=== PATIENT | male | born 1960 ===

== ENCOUNTER 2017-02-01 11:52 | Inpatient (IN) | payer MEDICAID ==
[2017-02-01 11:52] VITALS: BMI 27.0
[2017-02-01] MEDS ORDERED: Sodium Chloride 0.9% 500 ML IV ONE ×2 (12:22→12:29)
--- NOTE | 2017-02-01 12:25 | C.PDOC ---
History Of Present Illness 56 y/o male with PMHx of bipolar disorder presents to the ED for psychiatric evaluation. He reports feeling increasingly depressed over the past week, and states he recently experienced the loss of his parents and his . Patient is having suicidal thoughts, and plans to walk into traffic. Denies homicidal ideations. Patient is a daily drinker of alcohol, last drink was prior to arrival. Denies drug use. PMD: Debbie Tristan Rust Time Seen by Provider: 02/01/17 11:58 Chief Complaint (Nursing): Psychiatric Evaluation History Per: Patient History/Exam Limitations: no limitations Onset/Duration Of Symptoms: Days (x 1 week) Current Symptoms Are (Timing): Still Present Modifying Factor(s): Alcohol Severity: Moderate Associated Symptoms: Depression, Suicidal Thoughts, Suicidal Plan Involuntary Hold By: Emergency Physician Past Medical History Reviewed: Historical Data, Nursing Documentation, Vital Signs Vital Signs: Last Vital Signs Temp 97.9 F 02/04/17 09:22 Pulse 85 02/04/17 09:22 Resp 20 02/04/17 09:22 BP 136/85 02/04/17 09:22 Pulse Ox 98 02/04/17 09:22 - Medical History PMH: Anxiety, Bipolar Disorder, Depression, Pulmonary Embolism, Seizures (ETOH related) - [facility] Procedures DETOXIFICATION SERVICES FOR SUBSTANCE ABUSE TREATMENT (10/28/15) GROUP PSYCHOTHERAPY (12/31/15) INDIVIDUAL PSYCHOTHERAPY, SUPPORTIVE (12/31/15) MEDICATION MANAGEMENT (12/31/15) Family History: States: No Known Family Hx - Social History Hx Alcohol Use: Yes Hx Substance Use: No - Immunization History Hx Tetanus Toxoid Vaccination: No Hx Influenza Vaccination: Yes Hx Pneumococcal Vaccination: No Review Of Systems Except As Marked, All Systems Reviewed And Found Negative. Constitutional: Negative for: Fever Cardiovascular: Negative for: Chest Pain Respiratory: Negative for: Shortness of Breath Gastrointestinal: Negative for: Vomiting, Abdominal Pain, Diarrhea Psych: Positive for: Depression, Suicidal ideation (with plan). Negative for: Other Physical Exam - Physical Exam Appears: Well, Non-toxic, No Acute Distress Skin: Normal Color, Warm, Dry Eye(s): bilateral: Normal Inspection Oral Mucosa: Moist Neck: Supple Cardiovascular: Rhythm Regular Respiratory: Normal Breath Sounds, Accessory Muscle Use, No Rales, No Rhonchi, No Wheezing Gastrointestinal/Abdominal: Normal Exam, Bowel Sounds, Soft, No Tenderness Back: Normal Inspection Extremity: Bilateral: Atraumatic, Normal Color And Temperature, Normal ROM Neurological/Psych: Oriented x3 Gait: Steady ED Course And Treatment - Laboratory Results Result Diagrams: 02/01/17 12:18 02/01/17 12:18 Interpretation Of Abnormal: Alcohol - 347 O2 Sat by Pulse Oximetry: 96 (RA) Pulse Ox Interpretation: Normal Progress Note: 12:12. Initial Plan: Blood work, UA, UDS, and crisis evaluation. Patient given IV NS bolus. Placed on 1:1 observation. 3:50pm- Patient medically cleared. Pending sobriety & crisis. 6:55pm- Patient accepted by Dr. Blanco for psychiatric admission - bipolar disorder and alcohol dependence. Disposition - Disposition Disposition: HOSPITALIZED Disposition Time: 18:59 Condition: STABLE - Clinical Impression Clinical Impression: Bipolar disorder, Alcohol intoxication - Scribe Statement The provider has reviewed the documentation as recorded by the Scribchuck Griffin All medical record entries made by the Scribe were at my direction and personally dictated by me. I have reviewed the chart and agree that the record accurately reflects my personal performance of the history, physical exam, medical decision making, and the department course for this patient. I have also personally directed, reviewed, and agree with the discharge instructions and disposition. Decision To Admit - Pt Status Changed To: Hospital Disposition Of: Inpatient - Admit Certification Admit to Inpatient:: After my assessment, the patient will require hospitalization for at least two midnights. This is because of the severity of symptoms shown, intensity of services needed, and/or the medical risk in this patient being treated as an outpatient. - InPatient: Physician Admission Certification: I certify that this patient requires 2 or more midnights of care for the following reason:: see notes - . Bed Request Type: Psychiatry Admitting Physician: Zoe Blanco Patient Diagnosis: Bipolar disorder, Alcohol dependence
[2017-02-01 12:27] LABS: BASO % 0.5 % (0.0-2.0); EOS % 0.3 % (0.0-4.0); HEMATOCRIT 38.8 % (35.0-51.0); LYMPH # 2.8 K/uL (1.0-4.3); LYMPH % 34.2 % (20.0-40.0); MEAN CELL VOLUME 87.3 fL (80.0-94.0); MEAN CORPUSCULAR HEMOGLOBIN 29.7 pg (27.0-31.0); MEAN PLATELET VOLUME 6.9 fL (7.2-11.7); MONO # 0.7 K/uL (0.0-0.8); MONO % 8.1 % (0.0-10.0); RED CELL DISTRIBUTION WIDTH 13.7 % (11.5-14.5); WHITE BLOOD COUNT 8.1 K/uL (4.8-10.8)
[2017-02-01 12:34] LABS: ALB/GLOB RATIO 1.4 (1.0-2.1); ALKALINE PHOSPHATASE 63 U/L (38-126); ALT/SGPT 43 U/L (21-72); AST/SGOT 45 U/L (17-59); BILIRUBIN,TOTAL 0.3 mg/dL (0.2-1.3); BLOOD UREA NITROGEN 9 mg/dL (9-20); CALCIUM 8.6 mg/dl (8.6-10.4); CARBON DIOXIDE 23 mmol/L (22-30); CHLORIDE 106 mmol/L (98-107); GFR AFRICAN-AMERICAN > 60; GLUCOSE,RANDOM 119 mg/dL (75-110); POTASSIUM 3.8 mmol/L (3.6-5.2); SODIUM 146 mmol/L (132-148); TOTAL PROTEIN 7.1 g/dL (6.3-8.3)
[2017-02-01 12:57] LABS: ALCOHOL SERUM 347 mg/dl (0-10)
[2017-02-01 18:22] LABS: URINE BILIRUBIN NEGATIVE (NEGATIVE); URINE BLOOD NEGATIVE (NEGATIVE); URINE COLOR Colorless (YELLOW); URINE GLUCOSE (UA) NORMAL (Normal); URINE KETONE NEGATIVE (NEGATIVE); URINE LEUKOCYTE ESTERASE NEG Leu/uL (Negative); URINE PROTEIN NEGATIVE (NEGATIVE); URINE UROBILINOGEN NORMAL mg/dL (0.2-1.0)
[2017-02-01] MEDS ORDERED: Aluminum Hydroxide/Magnesium Hydroxide Susp (30 mL) PO PRN (20:08)
--- NOTE | 2017-02-01 20:29 | PCM.BM ---
<Tena Swan - Last Filed: 02/01/17 20:28> Treatment Plan Problems - Problems identified on initial assessmt Depression Date Initiated: 02/01/17 Time Initiated: 20:28 Assessment reference: NA Status: Active Comment: ETOH LEVEL 347 Treatment assets and liabiliti Patient Assests: cooperative, negotiates basic needs Patient Liabilities: poor support system, substance abuse - Milieu Protocol Maintain good personal hygiene: daily Encourage regular showers, daily Remind patient to perform daily oral care Conduct patient checks and document Observation sheet: Q15 minutes Maintain personal safety: every shift Educate patient to report safety concerns to staff, every shift Monitor environment for contraband/sharps Medication safety: Monitor for expected outcome, potential side effects: every shift, Assess barriers to learning: every shift, Assess readiness for medication education: every shift <Ellen Lopez - Last Filed: 02/03/17 11:22> - Diagnosis (1) Major depressive disorder, recurrent, moderate Status: Acute Interventions: 02/03/17 11:23 * Assess/adjust medications daily and /or as needed * See patient on an individual basis 7x/week to assess level of depressive behaviors and stability * Discuss risks, benefits, side effects and alternatives of medications * (2) Alcohol dependence Status: Acute Interventions: 02/03/17 11:23 * Assess 7x/week regarding severity of withdrawal * Educate regarding risks, benefits, side effects and alternatives of medications * Use Motivational Interviewing for abstinence * Use CBT for relapse prevention * Medication management for withdrawal symptoms * Encourage medication assisted treatment * <Debbie Tomlinson - Last Filed: 02/03/17 11:32> Family Contact Family involvement: Famliy/SO not involved - Goals for Treatment Patient goals for treatment: "I want to leave." Discharge/Continuing Care - Education Needs Education Needs: Patient Medication, Patient Coping Skills, Patient Placement options, Patient Community resources - Discharge Discharge Criteria: Tolerates medication w/o severe side effects, Free of Suicidal thoughts, No longer exhibiting s/s of withdrawal Discharge to:: Custodial - Treatment Team Participation Discussed with Family/SO: No Was Patient/Family/SO present at Treatment Team Meeting: Yes
--- NOTE | 2017-02-02 10:13 | PCM.PSYCH ---
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 He was previously living with his sister and her , but got into a verbal altercation with them after drinking and was kicked out of the house. Patient is a poor historian. He allows himself to be interviewed, but appears guarded, unwilling to answer some questions, and is evasive about the timeline of events. Patient has a longstanding history of anxiety, depression, bipolar and alcohol use disorder. He came to the ED yesterday for suicidal thoughts following a "drinking binge" and was admitted. Patient states that he used to see a psychiatrist (doesn't know when) but stopped because he felt "uncomfortable." His PMD has been prescribing his medications and he has been compliant. States that he was admitted for ETOH detox 1 year ago, and has been following up with AA since that time. He states that he stopped drinking alcohol until he went on a 4 day alcohol binge prior to his admission here because things in his life "aren't working out." He states that he developed suicidal thoughts after drinking, and thus came to the hospital. Regarding ETOH use, patient reports that he's been drinking 1 pint of liquor daily since the start of his binge. He denies drinking beer. Patient has a history of ETOH related seizures, but cannot recall when his last seizure was. He denies use of heroin, cocaine, marijuana, painkillers or any other substances. Regarding withdrawal symptoms, patient reports shaking, nausea, and sweating. He denies vomiting, diarrhea, itching skin, headache, or heart racing. He states he has muscle pain because he's "not used to the bed." Patient is evasive when questioned about his depressive symptoms. He states that his depression has "intensified" but cannot provide a timeline. Reports sleeping "on and off" for about 5 hours per night, and a decreased interest in things he is normally interested in. He denies feelings of guilt, worthlessness , change in energy, change in concentration, change in appetite or weight. Patient has thoughts about killing himself. Patient states that he has tried to kill himself in the past but will not provide further details. Patient denies racing thoughts or periods of greatly elevated mood. He denies auditory/visual hallucinations, or the feeling like he is being watched or followed. 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 Current Medications: Active Medications Generic Name Dose Route Start Last Admin Trade Name Freq PRN Reason Stop Dose Admin Al Hydrox/Mg Hydrox/Simethicone 30 ml 02/01/17 20:08 02/01/17 21:31 Maalox 30 Ml PO 30 ml Q6 PRN Administration Indigestion / Heartburn Chlordiazepoxide 0 mg 02/02/17 12:00 Librium PO 02/07/17 11:59 Q6 ANITRA Taper Chlordiazepoxide 25 mg 02/02/17 10:08 Librium PO Q4H PRN Alcohol Withdrawal Clonidine HCl 0.1 mg 02/02/17 10:08 Catapres PO Q4H PRN Symptoms of alcohol withdrawl Duloxetine HCl 60 mg 02/02/17 10:00 02/02/17 10:02 Cymbalta PO 60 mg DAILY ANITRA Administration Folic Acid 1 mg 02/02/17 10:15 Folic Acid PO DAILY ANITRA Gabapentin 300 mg 02/01/17 18:00 02/02/17 10:02 Neurontin PO 300 mg TID ANITRA Administration Ibuprofen 600 mg 02/01/17 18:46 Motrin Tab PO Q6 PRN Pain, moderate (4-7) Multivitamins 1 tab 02/02/17 10:15 Hexavitamin PO DAILY ANITRA Quetiapine Fumarate 50 mg 02/01/17 22:00 02/01/17 21:31 Seroquel PO 50 mg HS ANITRA Administration Quetiapine Fumarate 50 mg 02/02/17 10:00 02/02/17 10:04 Seroquel PO 50 mg DAILY ANITRA Administration Thiamine HCl 100 mg 02/02/17 10:15 Vitamin B1 Tab PO DAILY ANITRA Trazodone HCl 50 mg 02/01/17 22:00 Desyrel PO HS PRN Insomnia Past Psychiatric History - Past Psychiatric History Previous Treatment History: Inpatient Pertinent Medical Hx (Current Medical&Sleep Prob, Allergies): Allergies Allergy/AdvReac Type Severity Reaction Status Date / Time No Known Allergies Allergy Verified 02/01/17 11:56 QUEtiapine [SEROquel] 50 mg PO BID 12/30/15 Warfarin [Coumadin] 5 mg PO DAILY 12/30/15 DULoxetine [Cymbalta] 30 mg PO DAILY #30 ecc 01/05/16 QUEtiapine [Seroquel] 100 mg PO HS #30 tab 01/05/16 traZODone [Desyrel] 50 mg PO HS PRN #30 tab 01/05/16 Review of Systems - Review of Systems All systems: reviewed and no additional remarkable complaints except - Neurological Neurological: UNREMARKABLE - Psychiatric Psychiatric: Abnormal Sleep Pattern, Anhedonia, Anxiety, Depression, Suicidal Ideation Mental Status Examination - Personal Presentation Personal Presentation: Looks stated age - Affect Affect: Constricted, Depressed - Motor Activity Motor Activity: Calm - Reliability in Providing Information Reliability in Providing Information: Poor, due to altered mood - Speech Speech: Organized - Mood Mood: Depressed - Formal Thought Process Formal Thought Process: No Impairment - Obsessions/Compulsions Obsessions: No Compulsions: No - Cognitive Functions Orientation: Person, Place, Situation, Time Sensorium: Alert Attention/Concentration: Attentive Abstract Thinking: Mercer Estimate of Intelligence: Below average Judgement: Imparied, as evidence by: Poor judgement, Imparied, as evidence by: Lack of insight into illness - Risk Risk: Suicidal, Withdrawal, Diminished functioning - Limitations Limitations: Living alone DSM 5 DX - DSM 5 DSM 5 Diagnosis: Bipolar disorder depressed moderate Alcohol use disorder severe Alcohol withdrawal - Recommended/Plan of Treatment Treatment Recommendations and Plan of Treatment: Bipolar disorder depressed moderate CBT [facility] Psychoeducation Supportive therapy, group therapy Cymbalta 60mg PO daily Neurontin 300mg PO TID Seroquel 50mg PO BID Trazodone 50 mg pO QHS Alcohol Use Disorder severe CBT [facility] Supportive psychotherapy Alcohol Withdrawal Librium 25mg PO Q4H PRN Clonidine 0.1mg PO Q4H PRN - Smoking Cessation Smoking Cessation Initiated: No
[2017-02-02] MEDS: Multiple Vitamins Tab PO SCH (13:20)
[2017-02-03] MEDS: Multiple Vitamins Tab PO SCH (10:18)
--- NOTE | 2017-02-03 11:24 | PCM.PYCHPN ---
Psychiatric Progress Note - Psychiatric Progress Note Patient seen today, length of contact: 15 minutes Patient Chief Complaint: "I want to go" Problems Identified/Issues Discussed: The patient was seen, chart reviewed and case was discussed with staff. The patient is compliant with medications and reports no side effects. Patient states improvement in his mood and improvement in the withdrawal s/s. 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 He denies suicidal ideation. He set up an appointment to see a psychiatrist on February 24. Plan for discharge tomorrow discussed with patient. After care discussed, support and psychoeducation given. Medication Change: Yes (d/c neurontin) Medical Record Reviewed: Yes Mental Status Examination - Cognitive Function Orientation: Person, Place, Situation, Time Memory: Intact Attention: WNL Concentration: Poor Association: WNL Fund of Knowledge: Poor - Mood Mood: Depressed - Affect Affect: Constricted, Depressed - Speech Speech: Soft - Formal Thought Process Formal Thought Process: No Impairment - Suicidal Ideation Suicidal Ideation: No - Homicidal Ideation Homicidal Ideation: No Goal/Treatment Plan - Goal/Treatment Plan Need for Continued Stay: Discharge may exacerbated symptoms Progress Toward Problem(s) and Goals/Treatment Plan: Bipolar disorder depressed moderate CBT [facility] Psycho[facility] Supportive therapy, group therapy Cymbalta 60mg PO daily d/c Neurontin 300mg PO TID Seroquel 50mg PO BID Trazodone 50 mg pO QHS Alcohol Use Disorder severe CBT [facility] Supportive psychotherapy Alcohol Withdrawal Librium taper (started yesterday) Librium 25mg PO Q4H PRN Clonidine 0.1mg PO Q4H PRN
[2017-02-04 09:03] VITALS: BP 136/85; RESP 20
[2017-02-04] MEDS: Multiple Vitamins Tab PO SCH (09:18)
[2017-02-04 09:51] VITALS: PULSE 85; TEMP 97.9
--- NOTE | 2017-02-04 10:34 | PCM.PYCHDC ---
Mental Status Examination - Mental Status Examination Orientation: Person, Place, Situation, Time Memory: Intact Mood: Anxious Affect: Constricted Speech: Appropriate Attention: WNL Concentration: Poor Association: WNL Fund of Knowledge: WNL Formal Thought Process: No Impairment Suicidal Ideation: No Current Homicidal Ideation?: No Discharge Summary - Discharge Note Reason for Hospitalization: Alcohol detox, depressive sxs and jose m ideation. Consultations:: List each consultation separately and include: 1. Reason for request. 2. Findings. 3. Follow-up Summary of Hospital Course include:: 1. Description of specific treatment plan utilized for patients during their course of treatmen. 2. Summarize the time- course for resolution of acute symptoms and/or regressed behaviors. 3. Describe issues identified and worked on during hospitalization. 4. Describe medication utilized. 5. Describe medical problems identified and treated. 6. Reassessment of suicide risk Summary of Hospital Course: The pt was admitted and started on treatment with psychotherapy, support, psychoeducation and medications. [place] and CBT used. The pt attended only a few groups and activities, as well as milieu therapy. All the risks and benefits of medications are discussed and the patient understood and agreed. The pt improved somewhat with the treatments provided. After care discussed with the patient. However, he decided to leave afetr 1-2 days for some made-up reasons. Risks of leaving early discussed, incl. relapse, withdrawal-seizures, OD . He still left. - Final Diagnosis (DSM 5) Condition upon Discharge: STABLE DSM 5: Bipolar disorder depressed moderate Alcohol use disorder severe Alcohol withdrawal Disposition: HOME/ ROUTINE Follow-up Treatment Plan: Cymbalta was NOT prescribed. Lexapro is given instead. Go to AA (his plan) Attend IOP (names discussed Stay away from alcohol, drugs Come to ER if needed See a PCP this month Prescriptions/Medication Reconciliation: DULoxetine [Cymbalta] 60 mg PO DAILY 14 Days QUEtiapine [SEROquel] 50 mg PO BID 28 Days - Smoking Cessation Smoking Cessation Medication prescribed: No - Antipsychotic Medications Pt discharged on 2 or more routine antipsychotic medications: No
[2017-02-06 09:14] VITALS: O2SAT 96
== END 2017-02-04 11:00 | disposition home or self-care (01) | DRG 430 ==
LOC: C.ER 11:52 → C.9OBSV 13:00 → OBSVTOIN 18:59 → C.5E 18:59
PROVIDERS: ADMIT Emergency Medicine; ATTEND Psychiatry & Neurology Psychiatry
PROC: HZ2ZZZZ Detoxification Services for Substance Abuse Treatment (ICD-10-PCS; principal; 2017-02-02)
PROC: HZ42ZZZ Group Counseling for Substance Abuse Treatment, Cognitive-Behavioral (ICD-10-PCS; 2017-02-02)
PROC: HZ52ZZZ Individual Psychotherapy for Substance Abuse Treatment, Cognitive-Behavioral (ICD-10-PCS; 2017-02-02)
PROC: HZ59ZZZ Individual Psychotherapy for Substance Abuse Treatment, Supportive (ICD-10-PCS; 2017-02-02)
PROC: HZ56ZZZ Individual Psychotherapy for Substance Abuse Treatment, Psychoeducation (ICD-10-PCS; 2017-02-02)
PROC: HZ46ZZZ Group Counseling for Substance Abuse Treatment, Psychoeducation (ICD-10-PCS; 2017-02-02)
DX: F31.32 Bipolar disorder, current episode depressed, moderate (principal); R56.9 Unspecified convulsions; R45.851 Suicidal ideations; F10.239 Alcohol dependence with withdrawal, unspecified; F10.288 Alcohol dependence with other alcohol-induced disorder; Z86.711 Personal history of pulmonary embolism; F41.9 Anxiety disorder, unspecified; Y90.8 Blood alcohol level of 240 mg/100 ml or more; Z59.0 Homelessness

== ENCOUNTER 2017-02-04 19:22 | Emergency (ER) | payer MEDICAID ==
[2017-02-04 19:23] VITALS: BMI 27.0
[2017-02-04 19:51] VITALS: BP 105/68; PULSE 93; RESP 16; TEMP 98.3; O2SAT 96
--- NOTE | 2017-02-04 20:39 | C.PDOC ---
History Of Present Illness pt states he wants detox. when the pt was told that that there are no beds available, the patient became threatening ,. belligerent, threatening to me. The event was witnessed by nurse Eduardo. Patient then left Time Seen by Provider: 02/04/17 20:39 Chief Complaint (Nursing): Substance Abuse Past Medical History Vital Signs: Last Vital Signs Temp 98.3 F 02/04/17 19:44 Pulse 93 H 02/04/17 19:44 Resp 16 02/04/17 19:44 BP 105/68 02/04/17 19:44 Pulse Ox 96 02/04/17 20:39 - Medical History PMH: Anxiety, Bipolar Disorder, Depression, Pulmonary Embolism, Seizures (ETOH related) Denies: Diabetes, Hepatitis, HIV, HTN, Sexually Transmitted Disease - [facility] Procedures DETOXIFICATION SERVICES FOR SUBSTANCE ABUSE TREATMENT (10/28/15) GROUP PSYCHOTHERAPY (12/31/15) INDIVIDUAL PSYCHOTHERAPY, SUPPORTIVE (12/31/15) MEDICATION MANAGEMENT (12/31/15) Family History: States: Unknown Family Hx - Social History Hx Alcohol Use: Yes Hx Substance Use: No - Immunization History Hx Tetanus Toxoid Vaccination: No Hx Influenza Vaccination: Yes Hx Pneumococcal Vaccination: No ED Course And Treatment O2 Sat by Pulse Oximetry: 96 Disposition Counseled Patient/Family Regarding: Studies Performed, Diagnosis - Disposition Disposition: ELOPEMENT - ER ONLY Disposition Time: 20:39 Condition: FAIR Forms: [facility] (Jamaican) - Clinical Impression Clinical Impression: Alcohol dependence
== END 2017-02-04 20:39 | disposition left against medical advice (07) ==
LOC: C.ER 19:22
DX: F10.20 Alcohol dependence, uncomplicated (principal); Y90.9 Presence of alcohol in blood, level not specified

== ENCOUNTER 2017-02-07 14:23 | Observation (INO) | payer MEDICAID ==
[2017-02-07 14:23] VITALS: BMI 27.0
[2017-02-07 14:38] VITALS: BP 114/73; PULSE 99; RESP 16; TEMP 98.2; O2SAT 97
[2017-02-07] MEDS ORDERED: Sodium Chloride 0.9% 1,000 ML IV ONE (15:23)
[2017-02-07 15:36] LABS: BASO % 0.6 % (0.0-2.0); EOS # 0.1 K/uL (0.0-0.7); EOS % 0.9 % (0.0-4.0); HEMATOCRIT 38.2 % (35.0-51.0); LYMPH # 2.2 K/uL (1.0-4.3); MEAN CELL VOLUME 87.2 fL (80.0-94.0); MEAN CORPUSCULAR HEMOGLOBIN 30.1 pg (27.0-31.0); MEAN CORPUSCULAR HGB CONC 34.5 g/dL (33.0-37.0); MEAN PLATELET VOLUME 6.5 fL (7.2-11.7); MONO # 0.4 K/uL (0.0-0.8); MONO % 7.6 % (0.0-10.0); RED CELL DISTRIBUTION WIDTH 13.3 % (11.5-14.5); WHITE BLOOD COUNT 5.7 K/uL (4.8-10.8)
[2017-02-07] MEDS ORDERED: Sodium Chloride 0.9% 1,000 ML ONE (15:42)
--- NOTE | 2017-02-07 15:46 | C.PDOC ---
History Of Present Illness <Morena Martin - Last Filed: 02/07/17 18:51> <Wojciech Rosario - Last Filed: 02/07/17 19:27> 56 year old male, whose past medical history includes alcohol abuse, depression , bipolar disorder, and anxiety, who presents to the Emergency department complaining of epigastric abdominal pain, nausea. At present time, Patient appears in acute alcohol intoxication, admits to drinking alcohol " today all day". Pt is very poor historian, although denies suicidal or homicidal ideation , vomiting, diarrhea, urinary symptoms. Ambulatory in ED. (Morena Martin) 726pm pt clinically sober, [id number], amb w steady gait (Wojciech Rosario) <Morena Martin - Last Filed: 02/07/17 18:51> <Wojciech Rosario - Last Filed: 02/07/17 19:27> Time Seen by Provider: 02/07/17 14:50 Chief Complaint (Nursing): Substance Abuse Past Medical History - Medical History PMH: Anxiety, Bipolar Disorder, Depression, Pulmonary Embolism, Seizures (ETOH related) Denies: Diabetes, Hepatitis, HIV, HTN, Chronic Kidney Disease, Sexually Transmitted Disease Family History: States: Unknown Family Hx - Social History Hx Alcohol Use: Yes Hx Substance Use: No (denies) - Immunization History Hx Tetanus Toxoid Vaccination: No Hx Influenza Vaccination: Yes Hx Pneumococcal Vaccination: No <Morena Martin - Last Filed: 02/07/17 18:51> Review Of Systems Review Of Systems: ROS cannot be obtained secondary to pt's inabilty to answer questions. (intoxicated) Gastrointestinal: Positive for: Nausea, Abdominal Pain <Morena Martin - Last Filed: 02/07/17 18:51> Physical Exam - Physical Exam Appears: No Acute Distress, Other (intoxicated) Skin: Normal Color, Warm, Dry Head: Atraumatic, Normacephalic Eye(s): bilateral: PERRL ((+)slugish reactive B/L) Ear(s): Bilateral: Normal Nose: No Flaring Oral Mucosa: Moist Neck: No Midline Cervical Tenderness, No Paracervical Tenderness, No Step Off Deformity, Supple Cardiovascular: Rhythm Regular, No JVD Respiratory: No Decreased Breath Sounds, No Accessory Muscle Use, No Stridor, No Wheezing Gastrointestinal/Abdominal: Soft, Tenderness (mild epigastric), No Distention, No Guarding, No Rebound Extremity: Normal ROM, No Pedal Edema, No Deformity, No Swelling Neurological/Psych: Normal Motor, Normal Sensation, Normal Reflexes <Morena Martin - Last Filed: 02/07/17 18:51> ED Course And Treatment - Laboratory Results Result Diagrams: 02/07/17 15:31 02/07/17 15:31 O2 Sat by Pulse Oximetry: 97 Pulse Ox Interpretation: Normal <Morena Martin - Last Filed: 02/07/17 18:51> - Laboratory Results Result Diagrams: 02/07/17 15:31 02/07/17 15:31 <Wojciech Rosario - Last Filed: 02/07/17 19:27> ED OBSERVATION Date of observation admission: 02/07/17 Time of observation admission: 15:30 <Morena Martin - Last Filed: 02/07/17 18:51> Discharge: Yes <Wojciech Rosario - Last Filed: 02/07/17 19:27> - Observation admission statement Patient is being placed in observation because:: Alcohol intoxication, epigastric pain (Morena Martin) - Goals of Observation Goals of observation are:: Diagnostics, sx tx, sobriety, re-eval (Morena Martin) - Progress Note Progress Note: 02/07/17 At 16:27, pt sleeping comfortably, not in any apparent distress. Pt is easily arousable to verbal stimuli. Neuorlogicaly intact. Blood work review and appears without acute abnormalities. At 17:59, sleeping, not in any apparent distress. Neurologicaly intact. At 19:00, pt sleeping, not in any apparent distress. neuorlogicaly intact. (Morena Martin) Disposition <Morena Martin - Last Filed: 02/07/17 18:51> - Disposition Disposition Time: 19:26 <Wojciech Rosario - Last Filed: 02/07/17 19:27> - Disposition Disposition: HOME/ ROUTINE Condition: STABLE - Clinical Impression Clinical Impression: Alcohol intoxication Physician Patient Turnover Patient Signed Over To: Wojciech Rosario Handoff Comments: Sobriety, re-eval, dispo <Morena Martin - Last Filed: 02/07/17 18:51>
[2017-02-07 15:53] LABS: CHLORIDE 105 mmol/L (98-107)
[2017-02-07 15:54] LABS: SODIUM 141 mmol/L (132-148)
[2017-02-07 15:56] LABS: GFR AFRICAN-AMERICAN > 60
[2017-02-07 15:57] LABS: ALB/GLOB RATIO 1.6 (1.0-2.1); ALKALINE PHOSPHATASE 47 U/L (38-126); ALT/SGPT 36 U/L (21-72); AST/SGOT 29 U/L (17-59); BILIRUBIN,TOTAL 0.6 mg/dL (0.2-1.3); BLOOD UREA NITROGEN 9 mg/dL (9-20); CALCIUM 8.8 mg/dl (8.6-10.4); CARBON DIOXIDE 23 mmol/L (22-30); GLUCOSE,RANDOM 101 mg/dL (75-110); TOTAL PROTEIN 7.1 g/dL (6.3-8.3)
[2017-02-07 15:58] LABS: ALCOHOL SERUM 164 mg/dl (0-10)
[2017-02-07 17:30] LABS: RBC URINE < 1 /hpf (0-3); URINE BILIRUBIN NEGATIVE (NEGATIVE); URINE BLOOD NEGATIVE (NEGATIVE); URINE COLOR Straw (YELLOW); URINE GLUCOSE (UA) NORMAL (Normal); URINE KETONE NEGATIVE (NEGATIVE); URINE LEUKOCYTE ESTERASE NEG Leu/uL (Negative); URINE PROTEIN NEGATIVE (NEGATIVE); URINE UROBILINOGEN NORMAL mg/dL (0.2-1.0)
== END 2017-02-07 19:27 | disposition home or self-care (01) ==
LOC: C.ER 14:23 → C.9OBSV 15:26
PROVIDERS: ADMIT Emergency Medicine; ATTEND Emergency Medicine
DX: F10.229 Alcohol dependence with intoxication, unspecified (principal); F32.9 Major depressive disorder, single episode, unspecified; E11.22 Type 2 diabetes mellitus with diabetic chronic kidney disease; I12.9 Hypertensive chronic kidney disease with stage 1 through stage 4 chronic kidney disease, or unspecified chronic kidney disease; N18.9 Chronic kidney disease, unspecified
CPT/HCPCS: 80053; 80320; 80324; 80345; 80346; 80349; 80353; 80358; 80361; 81001; 82948; 83690; 83992; 85025; 96360; 96374; C9113; G0378; J2405; J7040

== ENCOUNTER 2017-04-10 23:08 | Inpatient (IN) | payer MEDICAID, OTHER ==
[2017-04-10 23:08] VITALS: BMI 27.0
--- NOTE | 2017-04-11 00:04 | C.PDOC ---
History Of Present Illness Patient presents to ED requesting ETOH detox and reports left chest wall discomfort when coughing. Patient states last drank ETOH was 1 hour prior to arrival and denies fever, chills, nausea, vomiting or any other complaints at this time. Time Seen by Provider: 04/11/17 00:03 Chief Complaint (Nursing): Chest Pain History Per: Patient History/Exam Limitations: no limitations Onset/Duration Of Symptoms: Hrs Current Symptoms Are (Timing): Still Present Suicide/Self Injury Attempted (Context): None Modifying Factor(s): Alcohol Severity: Mild Pain Scale Rating Of: 2 Associated Symptoms: denies: Anger, Suicidal Thoughts Past Medical History Reviewed: Historical Data, Nursing Documentation, Vital Signs Vital Signs: Last Vital Signs Temp 97.3 F L 04/11/17 01:14 Pulse 95 H 04/11/17 01:14 Resp 20 04/11/17 01:14 BP 113/55 L 04/11/17 01:14 Pulse Ox 98 04/11/17 02:09 - Medical History PMH: Anxiety, Bipolar Disorder, Depression, Pancreatitis, Pulmonary Embolism, Seizures (ETOH related) Surgical History: No Surg Hx - [facility] DETOXIFICATION SERVICES FOR SUBSTANCE ABUSE TREATMENT (02/01/17) GROUP GETTERER FOR SUBSTANCE ABUSE TREATMENT, PSYCHOEDUCATION (02/01/17) GROUP GETTERER FOR SUBSTANCE ABUSE, COGNITIVE BEHAVIORAL (02/01/17) GROUP PSYCHOTHERAPY (12/31/15) INDIV PSYCHOTHERAPY FOR SUBSTANCE ABUSE TREATMENT, SUPPORT (02/01/17) INDIV PSYCHOTHERAPY FOR SUBSTANCE ABUSE, COGNITIV BEHAVIORAL (02/01/17) INDIV PSYCHOTHERAPY FOR SUBSTANCE ABUSE, PSYCHOEDUCATION (02/01/17) INDIVIDUAL PSYCHOTHERAPY, SUPPORTIVE (12/31/15) MEDICATION MANAGEMENT (12/31/15) Family History: States: No Known Family Hx - Social History Hx Alcohol Use: Yes Hx Substance Use: No (denies) - Immunization History Hx Tetanus Toxoid Vaccination: No Hx Influenza Vaccination: Yes Hx Pneumococcal Vaccination: No Review Of Systems Constitutional: Negative for: Fever, Chills Cardiovascular: Positive for: Chest Pain Respiratory: Negative for: Cough, Shortness of Breath Gastrointestinal: Negative for: Nausea, Vomiting Skin: Negative for: Rash Physical Exam - Physical Exam Appears: Non-toxic, No Acute Distress Skin: Warm, Dry, No Rash Head: Normacephalic Oral Mucosa: Moist Neck: Supple Cardiovascular: Rhythm Regular Respiratory: Normal Breath Sounds, No Rales, No Rhonchi, No Wheezing Gastrointestinal/Abdominal: Soft, No Tenderness, No Guarding, No Rebound Extremity: Capillary Refill (<2 seconds) Neurological/Psych: Oriented x3, Normal Speech (speaking in full sentences) ED Course And Treatment - Laboratory Results Result Diagrams: 04/11/17 00:45 04/11/17 00:45 ECG: Interpreted By Me, Viewed By Me ECG Rhythm: Sinus Rhythm (78), Nonspecific Changes O2 Sat by Pulse Oximetry: 98 (RA) Pulse Ox Interpretation: Normal - Radiology CXR: Interpreted by Me, Viewed By Me CXR Interpretation: No: Infiltrates, Fracture, Pnemothorax Disposition Discussed With Dr.: Kylee Mittal Comment: accepted the pt on her service and took over the care at 3:44 AM Doctor Will See Patient In The: Hospital Counseled Patient/Family Regarding: Studies Performed, Diagnosis - Disposition Disposition: HOSPITALIZED Disposition Time: 00:04 Condition: FAIR Forms: [facility] (Ivorian) - POA Present On Arrival: None - Clinical Impression Clinical Impression: Alcohol dependence, Major depressive disorder, recurrent - Scribe Statement The provider has reviewed the documentation as recorded by the Scribe Mickey Slater All medical record entries made by the Scribe were at my direction and personally dictated by me. I have reviewed the chart and agree that the record accurately reflects my personal performance of the history, physical exam, medical decision making, and the department course for this patient. I have also personally directed, reviewed, and agree with the discharge instructions and disposition. Decision To Admit - Pt Status Changed To: Hospital Disposition Of: Inpatient - Admit Certification Admit to Inpatient:: After my assessment, the patient will require hospitalization for at least two midnights. This is because of the severity of symptoms shown, intensity of services needed, and/or the medical risk in this patient being treated as an outpatient. - InPatient: Physician Admission Certification: I certify that this patient requires 2 or more midnights of care for the following reason:: After my assessment, the patient will require hospitalization for at least two midnights. This is because of the severity of symptoms shown, intensity of services needed, and/or the medical risk in this patient being treated as an outpatient. - . Bed Request Type: Psychiatry Admitting Physician: Kylee Mittal Patient Diagnosis: Alcohol dependence, Major depressive disorder, recurrent
[2017-04-11 00:48] LABS: BASO % 0.6 % (0.0-2.0); EOS % 0.4 % (0.0-4.0); HEMATOCRIT 41.5 % (35.0-51.0); LYMPH # 1.8 K/uL (1.0-4.3); LYMPH % 36.2 % (20.0-40.0); MEAN CELL VOLUME 89.7 fL (80.0-94.0); MEAN CORPUSCULAR HEMOGLOBIN 30.8 pg (27.0-31.0); MEAN CORPUSCULAR HGB CONC 34.4 g/dL (33.0-37.0); MEAN PLATELET VOLUME 7.1 fL (7.2-11.7); MONO # 0.3 K/uL (0.0-0.8); MONO % 6.6 % (0.0-10.0); RED CELL DISTRIBUTION WIDTH 13.5 % (11.5-14.5); WHITE BLOOD COUNT 5.1 K/uL (4.8-10.8)
[2017-04-11 01:01] LABS: CHLORIDE 104 mmol/L (98-107); SODIUM 139 mmol/L (132-148)
[2017-04-11 01:04] LABS: ALB/GLOB RATIO 1.3 (1.0-2.1); ALKALINE PHOSPHATASE 57 U/L (38-126); ALT/SGPT 33 U/L (21-72); AST/SGOT 45 U/L (17-59); BILIRUBIN,TOTAL 0.8 mg/dL (0.2-1.3); BLOOD UREA NITROGEN 11 mg/dL (9-20); CALCIUM 8.2 mg/dl (8.6-10.4); CARBON DIOXIDE 22 mmol/L (22-30); GFR AFRICAN-AMERICAN > 60; GLUCOSE,RANDOM 134 mg/dL (75-110); TOTAL PROTEIN 8.1 g/dL (6.3-8.3)
[2017-04-11 01:05] LABS: ALCOHOL SERUM 220 mg/dl (0-10)
[2017-04-11 01:09] LABS: POTASSIUM 4.1 mmol/L (3.6-5.2)
[2017-04-11 02:15] LABS: RBC URINE 3 /hpf (0-3); URINE BILIRUBIN NEGATIVE (NEGATIVE); URINE BLOOD NEGATIVE (NEGATIVE); URINE COLOR Yellow (YELLOW); URINE GLUCOSE (UA) NORMAL (Normal); URINE KETONE TRACE mg/dL (NEGATIVE); URINE LEUKOCYTE ESTERASE NEG Leu/uL (Negative); URINE PROTEIN NEGATIVE (NEGATIVE); URINE UROBILINOGEN NORMAL mg/dL (0.2-1.0); WBC URINE 2 /hpf (0-5)
[2017-04-11 04:00] VITALS: O2SAT 99
--- NOTE | 2017-04-11 06:29 | PCM.BM ---
<CaridadSu - Last Filed: 04/11/17 06:27> Treatment Plan Problems - Problems identified on initial assessmt Depression Date Initiated: 04/11/17 Time Initiated: 06:25 Assessment reference: NA Status: Active Priority: 1 Anxiety Date Initiated: 04/11/17 Time Initiated: 06:25 Assessment reference: NA Status: Active Priority: 2 Alcohol Abuse Date Initiated: 04/11/17 Time Initiated: 06:29 Assessment reference: NA Treatment assets and liabiliti Patient Assests: cooperative, insightful, self-reliant, ADL independent, physically healthy, negotiates basic needs, cognitively intact Patient Liabilities: live alone, financial problems, poor support system, substance abuse - Milieu Protocol Maintain good personal hygiene: daily Encourage regular showers, daily Remind patient to perform daily oral care, daily Assist patient to perform ADL's Maintain personal safety: every shift Monitor environment for contraband/sharps , other Educate patient to report safety concerns to staff (As needed) Medication safety: Monitor for expected outcome, potential side effects: every shift, Assess barriers to learning: every shift, Assess readiness for medication education: every shift <Debbie Tomlinson - Last Filed: 04/12/17 11:01> Family Contact Family involvement: Famliy/SO not involved - Goals for Treatment Patient goals for treatment: "I want to go to rehab." Discharge/Continuing Care - Education Needs Education Needs: Patient Medication, Patient Coping Skills, Patient Placement options, Patient Community resources - Discharge Discharge Criteria: Tolerates medication w/o severe side effects, No longer exhibiting s/s of withdrawal Discharge to:: Substance Abuse Rehab - Treatment Team Participation Discussed with Family/SO: No Was Patient/Family/SO present at Treatment Team Meeting: Yes <Tommy Grant - Last Filed: 04/14/17 00:18> - Diagnosis (1) Bipolar disorder Status: Acute Interventions: 04/14/17 00:17 * Assess/adjust medications daily and /or as needed * See patient on an individual basis 7x/week to assess level of manic behaviors and stability * Discuss risks, benefits, side effects and alternatives of medications * Monitor for side effects & effectiveness of medications * (2) Alcohol dependence Status: Acute Interventions: 04/14/17 00:18 * Assess 7x/week regarding withdrawal * Educate regarding risks, benefits, side effects and alternatives of medications * Use Motivational Interviewing for abstinence * Use CBT for relapse prevention * Medication management for withdrawal symptoms * Encourage medication assisted treatment *
--- NOTE | 2017-04-11 10:35 | RAD ---
PROCEDURE: CHEST RADIOGRAPH, 1 VIEW HISTORY: Detox/Psy COMPARISON: 10/28/2015 FINDINGS: LUNGS: Clear. PLEURA: No pneumothorax or pleural fluid seen. CARDIOVASCULAR: No radiographic findings to suggest acute or significant cardiovascular disease. OSSEOUS STRUCTURES: No significant abnormalities. VISUALIZED UPPER ABDOMEN: Normal. OTHER FINDINGS: None. IMPRESSION: No active disease. No acute/significant interval changes.
--- NOTE | 2017-04-11 12:32 | CARD ---
APPROVED REPORT EKG Measurement Heart [id number] <Conclusion> Normal sinus rhythm Normal ECG
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
[2017-04-11] MEDS: Multiple Vitamins Tab PO SCH (15:05)
[2017-04-12] MEDS: Multiple Vitamins Tab PO SCH (09:51)
--- NOTE | 2017-04-12 12:04 | PCM.PYCHPN ---
Psychiatric Progress Note - Psychiatric Progress Note Patient seen today, length of contact: 16 minutes Patient Chief Complaint: "I'm hearing them" Problems Identified/Issues Discussed: The pt is seen, chart reviewed, case discussed with staff. The pt is compliant with medications and reports no side-effects. Symptoms are improving but needs more time to stabilize. After care discussed, support and psychoeducation given. Patient states auditory hallucinations- won't say what they are telling her. Patient displays paranoid delusions that people are out to kill her on the "outside" Patient denies SI Medication Change: No Medical Record Reviewed: Yes Mental Status Examination - Cognitive Function Orientation: Person, Place, Situation, Time Memory: Intact Attention: Poor Concentration: Poor Association: Loose Fund of Knowledge: Poor - Mood Mood: Depressed, Anxious - Affect Affect: Constricted - Formal Thought Process Formal Thought Process: No Impairment - Suicidal Ideation Suicidal Ideation: No - Homicidal Ideation Homicidal Ideation: No Goal/Treatment Plan - Goal/Treatment Plan Need for Continued Stay: Discharge may exacerbated symptoms, Severe functional impairment Progress Toward Problem(s) and Goals/Treatment Plan: Continue medications Support and psychoeducation daily Attend groups and activities daily After care planning by SW- discharge likely tomorrow Celexa 20 mg Gabapentin 300mg Seroquel 50 mg
--- NOTE | 2017-04-12 12:36 | PCM.PYCHPN ---
Psychiatric Progress Note - Psychiatric Progress Note Patient seen today, length of contact: 16 minutes Patient Chief Complaint: "I am still depressed." Problems Identified/Issues Discussed: He is seen alone and with the team. Chart reviewed He is more up and his personality d/o started to show itself - entitled, argumentative... He refused celexa and asked for cymbalta which is not good when there is alcoholism - but again, he was dismissive. Overall improved After care discussed Support given Not suicidal Medication Change: Yes (lexapro) Medical Record Reviewed: Yes Mental Status Examination - Cognitive Function Orientation: Person, Place, Situation, Time Memory: Intact Attention: Poor Concentration: Poor Association: WNL Fund of Knowledge: Poor - Mood Mood: Depressed, Anxious - Affect Affect: Constricted - Formal Thought Process Formal Thought Process: No Impairment - Suicidal Ideation Suicidal Ideation: No - Homicidal Ideation Homicidal Ideation: No Goal/Treatment Plan - Goal/Treatment Plan Need for Continued Stay: Discharge may exacerbated symptoms, Severe functional impairment Progress Toward Problem(s) and Goals/Treatment Plan: Lexapro for depression Seroquel for insomnia and irritability As needed medications Gabapentin for augmentation Attend groups and activities Supportive therapy and psychoeducation [place] for abstinence CBT for relapse prevention Encourage MAT Refer to rehab or IOP Attend self-help groups as well Estimated Date of D/C: 04/17/17
[2017-04-13] MEDS: Multiple Vitamins Tab PO SCH (10:35)
[2017-04-13] MEDS ORDERED: Benzocaine/Menthol (Cepacol) Lozenge MT PRN (11:20)
--- NOTE | 2017-04-13 12:06 | PCM.PYCHPN ---
Psychiatric Progress Note - Psychiatric Progress Note Patient seen today, length of contact: 16 minutes Patient Chief Complaint: "I am still depressed." Problems Identified/Issues Discussed: He is seen alone and with the team. Chart reviewed Patient reports racing thoughts and having cold. He agreed to try Effexor XR Overall improved, after care discussed - wants inpatient Support given Not suicidal but withdrawn Medication Change: Yes (effexor xr) Medical Record Reviewed: Yes Mental Status Examination - Cognitive Function Orientation: Person, Place, Situation, Time Memory: Intact Attention: Poor Concentration: Poor Association: WNL Fund of Knowledge: Poor - Mood Mood: Depressed, Anxious - Affect Affect: Constricted - Formal Thought Process Formal Thought Process: No Impairment - Suicidal Ideation Suicidal Ideation: No - Homicidal Ideation Homicidal Ideation: No Goal/Treatment Plan - Goal/Treatment Plan Need for Continued Stay: Discharge may exacerbated symptoms, Severe functional impairment Progress Toward Problem(s) and Goals/Treatment Plan: Effexor XR for depression Seroquel for insomnia and irritability As needed medications Gabapentin for augmentation Attend groups and activities Supportive therapy and psychoeducation [place] for abstinence CBT for relapse prevention Encourage MAT Refer to rehab or IOP Attend self-help groups as well Estimated Date of D/C: 04/17/17
[2017-04-13] MEDS: Venlafaxine 37.5 mg ER Cap PO ONE (14:08)
[2017-04-13] MEDS: guaiFENesin 100 mg/5 ml Syrup UD PO PRN ×2 (14:09→22:01)
[2017-04-14] MEDS: Multiple Vitamins Tab PO SCH (09:40)
[2017-04-14] MEDS: Venlafaxine 75 mg ER Cap PO SCH (09:40)
[2017-04-14] MEDS: guaiFENesin 100 mg/5 ml Syrup UD PO PRN ×2 (11:15→22:19)
--- NOTE | 2017-04-14 13:15 | PCM.PYCHPN ---
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 he now agreed to take effexor instead of cymbalta. Risk of switch discussed. Will increase seroquel and dc trazodone (leg cramps) but wants to increase seroquel slowly Support given Psychoed given [place] used but he minimizes his alcohol risk/issue Wants rehab but shows no effort Medication Change: Yes (effexor xr) Medical Record Reviewed: Yes Mental Status Examination - Cognitive Function Orientation: Person, Place, Situation, Time Memory: Intact Attention: Poor Concentration: Poor Association: WNL Fund of Knowledge: Poor - Mood Mood: Depressed, Anxious - Affect Affect: Constricted - Formal Thought Process Formal Thought Process: No Impairment - Suicidal Ideation Suicidal Ideation: No - Homicidal Ideation Homicidal Ideation: No Goal/Treatment Plan - Goal/Treatment Plan Need for Continued Stay: Discharge may exacerbated symptoms, Severe functional impairment Progress Toward Problem(s) and Goals/Treatment Plan: Effexor XR for depression Seroquel for insomnia and irritability As needed medications Gabapentin stopped per his request Trz also stopped Attend groups and activities Supportive therapy and psychoeducation [place] for abstinence CBT for relapse prevention Encourage MAT Refer to rehab or IOP Attend self-help groups as well Estimated Date of D/C: 04/19/17
[2017-04-15] MEDS: Venlafaxine 75 mg ER Cap PO SCH (09:45)
[2017-04-15] MEDS: Multiple Vitamins Tab PO SCH (09:46)
[2017-04-15] MEDS: guaiFENesin 100 mg/5 ml Syrup UD PO PRN ×2 (17:14→21:47)
--- NOTE | 2017-04-15 21:00 | PCM.PYCHPN ---
Psychiatric Progress Note - Psychiatric Progress Note Patient seen today, length of contact: 16 minutes Patient Chief Complaint: I'm feeling OKay Problems Identified/Issues Discussed: Patient was seen and evaluated, chart reviewed and nurse input received. He has had no issue last night. Case was discussed with the nurse. Pt reports improvement in is mood and improvement in the feelings of hopelessness and helplessness. He denied SI, HI, intent or plan He is taking medication and denies any side effects. He needs more time for stabilization DSM 5 Symptoms Update: MDD recurrent, without psychotic features etoh use d/o Personality d/o Medication Change: Yes (effexor xr) Medical Record Reviewed: Yes Mental Status Examination - Cognitive Function Orientation: Person, Place, Situation, Time Memory: Intact Attention: Poor Concentration: Poor Association: WNL Fund of Knowledge: WNL Decription of patient's judgement and insights: fair/fair - Mood Mood: Depressed, Anxious - Affect Affect: Constricted - Speech Speech: Appropriate - Formal Thought Process Formal Thought Process: No Impairment - Suicidal Ideation Suicidal Ideation: No - Homicidal Ideation Homicidal Ideation: No Goal/Treatment Plan - Goal/Treatment Plan Need for Continued Stay: Discharge may exacerbated symptoms, Severe functional impairment Progress Toward Problem(s) and Goals/Treatment Plan: Effexor XR for depression Seroquel for insomnia and irritability As needed medications Gabapentin for augmentation Attend groups and activities Supportive therapy and psychoeducation [place] for abstinence CBT for relapse prevention Encourage MAT Refer to rehab or IOP Attend self-help groups as we Estimated Date of D/C: 04/17/17
[2017-04-16] MEDS: Venlafaxine 75 mg ER Cap PO SCH (10:14)
[2017-04-16] MEDS: Multiple Vitamins Tab PO SCH (10:14)
[2017-04-16] MEDS: guaiFENesin 100 mg/5 ml Syrup UD PO PRN ×2 (17:40→22:21)
--- NOTE | 2017-04-16 19:35 | PCM.PYCHPN ---
Psychiatric Progress Note - Psychiatric Progress Note Patient seen today, length of contact: 17 minutes Patient Chief Complaint: "I'm depressed" Problems Identified/Issues Discussed: Patient was seen and evaluated, chart reviewed and nurse input received. He has had no issue last night. Case was discussed with the nurse. Pt reports depressed mood with SI, but no intent or plan. He had improvement in the feelings of hopelessness and helplessness. He denied HI, intent or plan. He reproted that he had some shakiness due to ETOH withdrawal symptoms. He is taking medication and denies any side effects. He needs more time for stabilization Medical Problems: back pain, DSM 5 Symptoms Update: MDD, SEVERE, RECURRENT, W/O PSYCHOTIC FX PERSONALITY D/O ETOH USE D/O Medication Change: Yes (effexor xr) Medical Record Reviewed: Yes Mental Status Examination - Cognitive Function Orientation: Person, Place, Situation, Time Memory: Intact Attention: Poor Concentration: Poor Association: WNL Fund of Knowledge: Poor - Mood Mood: Depressed, Anxious - Affect Affect: Constricted - Speech Speech: Appropriate - Formal Thought Process Formal Thought Process: No Impairment - Suicidal Ideation Suicidal Ideation: Yes Plan: NO INTENT OR PLAN - Homicidal Ideation Homicidal Ideation: No Goal/Treatment Plan - Goal/Treatment Plan Need for Continued Stay: Severe depression anxiety, Discharge may exacerbated symptoms, Severe functional impairment Progress Toward Problem(s) and Goals/Treatment Plan: Effexor XR for depression Seroquel for insomnia and irritability As needed medications Gabapentin for augmentation Attend groups and activities Supportive therapy and psychoeducation [place] for abstinence CBT for relapse prevention Encourage MAT Refer to rehab or IOP Attend self-help groups Estimated Date of D/C: 04/19/17
[2017-04-17] MEDS: Venlafaxine 75 mg ER Cap PO SCH (09:54)
[2017-04-17] MEDS: Multiple Vitamins Tab PO SCH (09:54)
[2017-04-17] MEDS: guaiFENesin 100 mg/5 ml Syrup UD PO PRN (09:57)
[2017-04-17] MEDS: Venlafaxine 37.5 mg ER Cap PO SCH (11:45)
--- NOTE | 2017-04-17 17:56 | PCM.PYCHPN ---
Psychiatric Progress Note - Psychiatric Progress Note Patient seen today, length of contact: 17 minutes Patient Chief Complaint: "I am OK" Problems Identified/Issues Discussed: He is seen, case discussed, chart reviewed Somewhat more out and about. Affect is brighter but still says he is depressed. Interpersonal relations are problematic, both with staff and other patients. Agreed half-heartedly with Effexor, dose will be adjusted No SEs Wants to contact "every [facility] in the country" (??) but will likely go to [facility]. Medication Change: Yes (effexor xr) Medical Record Reviewed: Yes Mental Status Examination - Cognitive Function Orientation: Person, Place, Situation, Time Memory: Intact Attention: Poor Concentration: Poor Association: WNL Fund of Knowledge: Poor - Mood Mood: Depressed, Anxious - Affect Affect: Constricted - Speech Speech: Appropriate - Formal Thought Process Formal Thought Process: No Impairment - Suicidal Ideation Suicidal Ideation: Yes - Homicidal Ideation Homicidal Ideation: No Goal/Treatment Plan - Goal/Treatment Plan Need for Continued Stay: Severe depression anxiety, Discharge may exacerbated symptoms, Severe functional impairment Progress Toward Problem(s) and Goals/Treatment Plan: Effexor XR for depression Seroquel for insomnia and irritability As needed medications Gabapentin stopped per his request Trz also stopped Attend groups and activities Supportive therapy and psychoeducation [place] for abstinence CBT for relapse prevention Encourage MAT Refer to rehab or IOP Attend self-help groups as well Estimated Date of D/C: 04/19/17
[2017-04-18] MEDS ORDERED: Venlafaxine 37.5 mg ER Cap PO SCH ×2 (10:00)
[2017-04-18] MEDS: Venlafaxine 75 mg ER Cap PO SCH (10:08)
[2017-04-18] MEDS: Multiple Vitamins Tab PO SCH (10:08)
[2017-04-18] MEDS: Venlafaxine 37.5 mg ER Cap PO SCH (11:13)
--- NOTE | 2017-04-18 14:59 | PCM.PYCHPN ---
Psychiatric Progress Note - Psychiatric Progress Note Patient seen today, length of contact: 17 minutes Patient Chief Complaint: "I am feeling tired" Problems Identified/Issues Discussed: He is seen, case discussed, chart reviewed He is feeling a little better, less depressed Pt received a list of [facility] locations in [place] and [place]. He called [facility] together with our SW and reportedly accepted Support given ND used re alcohol Medication Change: Yes (effexor xr) Medical Record Reviewed: Yes Mental Status Examination - Cognitive Function Orientation: Person, Place, Situation, Time Memory: Intact Attention: Poor Concentration: Poor Association: WNL Fund of Knowledge: Poor - Mood Mood: Depressed, Anxious - Affect Affect: Constricted - Speech Speech: Appropriate - Formal Thought Process Formal Thought Process: No Impairment - Suicidal Ideation Suicidal Ideation: Yes - Homicidal Ideation Homicidal Ideation: No Goal/Treatment Plan - Goal/Treatment Plan Need for Continued Stay: Severe depression anxiety, Discharge may exacerbated symptoms, Severe functional impairment Progress Toward Problem(s) and Goals/Treatment Plan: Effexor XR for depression Seroquel for insomnia and irritability As needed medications Gabapentin stopped per his request Trz also stopped Attend groups and activities Supportive therapy and psychoeducation [place] for abstinence CBT for relapse prevention Encourage MAT Refer to rehab or IOP Attend self-help groups as well Estimated Date of D/C: 04/21/17 If changed, why: Accepted for [facility]
[2017-04-18] MEDS: guaiFENesin 100 mg/5 ml Syrup UD PO PRN (21:57)
[2017-04-19] MEDS: Multiple Vitamins Tab PO SCH (09:39)
[2017-04-19] MEDS: Venlafaxine 150 mg ER Cap PO SCH (09:39)
--- NOTE | 2017-04-19 10:48 | PCM.BM ---
<Tommy Grant - Last Filed: 04/19/17 11:27> - Diagnosis (1) Bipolar disorder Status: Acute Interventions: 04/19/17 11:27 * Assess/adjust medications daily and /or as needed * See patient on an individual basis 7x/week to assess level of manic behaviors and stability * Discuss risks, benefits, side effects and alternatives of medications * (2) Alcohol dependence Status: Acute Interventions: 04/19/17 11:28 * Educate regarding risks, benefits, side effects and alternatives of medications * Use Motivational Interviewing for abstinence * Use CBT for relapse prevention * Encourage medication assisted treatment * <BharatiDebbie woods - Last Filed: 04/19/17 13:57> Treatment Plan Problems - Problems identified on initial assessmt Depression Date Initiated: 04/11/17 Time Initiated: 06:25 Assessment reference: NA Status: Active Priority: 1 Anxiety Date Initiated: 04/11/17 Time Initiated: 06:25 Assessment reference: NA Status: Active Priority: 2 Alcohol Abuse Date Initiated: 04/11/17 Time Initiated: 06:29 Assessment reference: NA Treatment assets and liabiliti Patient Assests: cooperative, insightful, self-reliant, ADL independent, physically healthy, negotiates basic needs, cognitively intact Patient Liabilities: live alone, financial problems, poor support system, substance abuse - Milieu Protocol Maintain good personal hygiene: daily Encourage regular showers, daily Remind patient to perform daily oral care, daily Assist patient to perform ADL's Maintain personal safety: every shift Monitor environment for contraband/sharps , other Educate patient to report safety concerns to staff (As needed) Medication safety: Monitor for expected outcome, potential side effects: every shift, Assess barriers to learning: every shift, Assess readiness for medication education: every shift Milieu Narrative: Effexor XR for depression Seroquel for insomnia and irritability As needed medications Gabapentin stopped per his request Trz also stopped Attend groups and activities Supportive therapy and psychoeducation [place] for abstinence CBT for relapse prevention Encourage MAT Refer to rehab or IOP Attend self-help groups as well Family Contact Family involvement: Famliy/SO not involved - Goals for Treatment Patient goals for treatment: "I want to go to rehab." Discharge/Continuing Care - Education Needs Education Needs: Patient Medication, Patient Coping Skills, Patient Placement options, Patient Community resources - Discharge Discharge Criteria: Tolerates medication w/o severe side effects, No longer exhibiting s/s of withdrawal Discharge to:: Substance Abuse Rehab - Treatment Team Participation Patient/Family/SO Statement: Effexor XR for depression Seroquel for insomnia and irritability As needed medications Gabapentin stopped per his request Trz also stopped Attend groups and activities Supportive therapy and psychoeducation [place] for abstinence CBT for relapse prevention Encourage MAT Refer to rehab or IOP Attend self-help groups as well Discussed with Family/SO: No Was Patient/Family/SO present at Treatment Team Meeting: Yes Treatment Plan Review - Problem Depression Time Initiated: 06:25 Anxiety Time Initiated: 06:25 Alcohol Abuse Time Initiated: 06:29 - Discharge / Continuing Care Discharge to:: Substance Abuse Rehab Behavioral Health Services: Residential treatment Health Needs: Medications/Rx, Alcohol/Drug treatment <Parris Mullen - Last Filed: 04/19/17 14:02> Treatment Plan Review - Problem Depression Date Initiated: 04/19/17 Time Initiated: 14:01 Progress toward outcomes: improved Anxiety Date Initiated: 04/19/17 Time Initiated: 14:02 Progress toward outcomes: improved Alcohol Abuse Date Initiated: 04/19/17 Time Initiated: 14:02 Progress toward outcomes: resolved
--- NOTE | 2017-04-19 14:45 | PCM.PYCHPN ---
Psychiatric Progress Note - Psychiatric Progress Note Patient seen today, length of contact: 17 minutes Patient Chief Complaint: "I am feeling tired Problems Identified/Issues Discussed: Pt is seen, case discussed, chart reviewed Pt called the [facility] in [facility] and they have bed for him on Monday. Support given The pt is compliant with medications and reports no side-effects. Symptoms are improving but needs more time to stabilize. After care discussed, support and psychoeducation given. WI used re alcohol Medication Change: Yes (effexor xr, Seroquel) Medical Record Reviewed: Yes Mental Status Examination - Cognitive Function Orientation: Person, Place, Situation, Time Memory: Intact Attention: Poor Concentration: Poor Association: WNL Fund of Knowledge: Poor - Mood Mood: Depressed - Affect Affect: Constricted - Speech Speech: Appropriate - Formal Thought Process Formal Thought Process: No Impairment - Suicidal Ideation Suicidal Ideation: Yes - Homicidal Ideation Homicidal Ideation: No Goal/Treatment Plan - Goal/Treatment Plan Need for Continued Stay: Discharge may exacerbated symptoms, Severe functional impairment Progress Toward Problem(s) and Goals/Treatment Plan: Effexor XR for depression Seroquel for insomnia and irritability As needed medications Gabapentin stopped per his request Attend groups and activities Supportive therapy and psychoeducation [place] for abstinence CBT for relapse prevention Encourage MAT Refer to rehab or IOP Attend self-help groups as well Provide instructions on how to get to [facility] Estimated Date of D/C: 04/21/17
[2017-04-20] MEDS: Venlafaxine 150 mg ER Cap PO SCH (09:41)
[2017-04-20] MEDS: Multiple Vitamins Tab PO SCH (09:41)
[2017-04-20] MEDS: guaiFENesin 100 mg/5 ml Syrup UD PO PRN (12:12)
--- NOTE | 2017-04-20 22:06 | PCM.PYCHPN ---
Psychiatric Progress Note - Psychiatric Progress Note Patient seen today, length of contact: 17 minutes Patient Chief Complaint: "I feel sick" Problems Identified/Issues Discussed: The pt is seen, chart reviewed, case discussed with staff. Support given, CBT and AL used briefly No new symptoms reported, improving slowly and needs more time No SEs from medications, risks discussed. After care discussed - still interested in [facility] but has to ask if they are Ok with his meds, ie Seroquel Medication Change: No Medical Record Reviewed: Yes Mental Status Examination - Cognitive Function Orientation: Person, Place, Situation, Time Memory: Intact Attention: Poor Concentration: Poor Association: WNL Fund of Knowledge: Poor - Mood Mood: Depressed - Affect Affect: Constricted - Speech Speech: Appropriate - Formal Thought Process Formal Thought Process: No Impairment - Suicidal Ideation Suicidal Ideation: Yes - Homicidal Ideation Homicidal Ideation: No Goal/Treatment Plan - Goal/Treatment Plan Need for Continued Stay: Discharge may exacerbated symptoms, Severe functional impairment Progress Toward Problem(s) and Goals/Treatment Plan: Effexor XR for depression Seroquel for insomnia and irritability As needed medications Gabapentin stopped per his request Attend groups and activities Supportive therapy and psychoeducation [place] for abstinence CBT for relapse prevention Encourage MAT Refer to rehab or IOP Attend self-help groups as well Provide instructions on how to get to [facility] Estimated Date of D/C: 04/21/17
[2017-04-21 07:06] VITALS: BP 82/52; PULSE 95; RESP 20; TEMP 97.9
[2017-04-21] MEDS: Venlafaxine 150 mg ER Cap PO SCH (09:42)
[2017-04-21] MEDS: Multiple Vitamins Tab PO SCH (09:42)
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
== END 2017-04-21 12:45 | disposition home or self-care (01) | DRG 430 ==
LOC: C.ER 23:08 → C.5E 04-11 03:43
PROVIDERS: ADMIT Psychiatry & Neurology Psychiatry; ATTEND Psychiatry & Neurology Psychiatry
DX: F33.2 Major depressive disorder, recurrent severe without psychotic features (principal); F10.239 Alcohol dependence with withdrawal, unspecified; F14.90 Cocaine use, unspecified, uncomplicated; F31.9 Bipolar disorder, unspecified; F41.9 Anxiety disorder, unspecified; Z86.711 Personal history of pulmonary embolism; Z59.0 Homelessness; F17.210 Nicotine dependence, cigarettes, uncomplicated; F12.90 Cannabis use, unspecified, uncomplicated